=== PATIENT | male | born 1970 | race Caucasian/White ===

== ENCOUNTER → 2021-04-13 | Outpatient (CLI) | payer OTHER ==
[~2021-04-13] MED LIST: ERGO500029 PO; LISI10TA22 PO; NAPR-885 PO; ZOLO100T PO
== END ==
LOC: M LABSMTC 09:25
PROVIDERS: ATTEND Anesthesiology
DX: Z01.818 Encounter for other preprocedural examination (principal); Z11.52 Encounter for screening for COVID-19

== ENCOUNTER → 2021-06-08 | Outpatient (CLI) | payer OTHER ==
[~2021-06-08] MED LIST changes: +LISI40TA4 PO; +SERT-141 PO
== END ==
LOC: M LABSMTC 09:48
PROVIDERS: ATTEND Anesthesiology
DX: Z01.818 Encounter for other preprocedural examination (principal); Z11.52 Encounter for screening for COVID-19

== ENCOUNTER → 2022-01-19 | Outpatient (CLI) | payer OTHER | LOC: M LABSMTC 09:06 | PROVIDERS: ATTEND Anesthesiology | DX: Z01.818 Encounter for other preprocedural examination (principal); Z11.52 Encounter for screening for COVID-19 ==

== ENCOUNTER 2022-01-22 06:04 | Day surgery (SDC) | payer OTHER ==
[~2022-01-22] VITALS: Ht 157.5 cm; Wt 97.5 kg
[2022-01-22] MEDS ORDERED: LR 1,000 ML IV SCH ×3 (06:30→09:55)
[2022-01-22] MEDS ORDERED: LIDOCAINE W/EPINEPHRINE 1% 20ML VIAL As Ordered ONE ×2 (07:18→07:35)
[2022-01-22] MEDS ORDERED: propofoL 200 MG/20 ML VIAL As Ordered ONE (07:50)
[2022-01-22] MEDS ORDERED: ONDANSETRON 4MG 2ML VIAL As Ordered ONE (07:50)
[2022-01-22] MEDS ORDERED: ROCURONIUM BROMIDE 50 MG/5 ML VIAL As Ordered ONE (07:50)
[2022-01-22] MEDS ORDERED: MIDAZOLAM INJ 2MG/2ML VIAL (J2250 PER 1MG) As Ordered ONE (07:50)
[2022-01-22] MEDS ORDERED: fentaNYL 250 MCG/5 ML INJECTION As Ordered ONE (07:50)
[2022-01-22] MEDS ORDERED: dexameTHASONE 4 MG/ML 1ML VIAL (J1100 PER 1MG) As Ordered ONE (07:50)
[2022-01-22] MEDS ORDERED: KETOROLAC 60MG 2ML VIAL As Ordered ONE (07:50)
[2022-01-22] MEDS ORDERED: LIDOCAINE 2% 100MG/5ML SDV (FOR ANES.) As Ordered ONE (07:50)
[2022-01-22] MEDS ORDERED: SUGAMMADEX SODIUM 500 MG/5 ML VIAL (BRIDION) As Ordered ONE (07:50)
[2022-01-22] MEDS ORDERED: ePHEDrine SULFATE 25 MG/5 ML(5MG/ML) SYRINGE As Ordered ONE (07:51)
[2022-01-22] MEDS ORDERED: PHENYLephrine 500MCG 5ML (100MCG/ML) SYRINGE As Ordered ONE (07:51)
[2022-01-22] MEDS ORDERED: LIDOCAINE 5% OINT 30GM TUBE As Ordered ONE (08:02)
[2022-01-22] MEDS ORDERED: ONDANSETRON 4MG 2ML VIAL IV PRN (08:25)
[2022-01-22] MEDS ORDERED: MORPHINE 2 MG/ML 1ML VIAL IV PRN (08:25)
[2022-01-22] MEDS ORDERED: fentaNYL 100 MCG/2 ML INJECTION IV PRN (08:25)
[2022-01-22] MEDS ORDERED: PHENYLEPHRINE 0.5% NASAL SPRAY 15 ML As Ordered ONE (08:26)
[2022-01-22] MEDS ORDERED: ACETAMINOPHEN 500 MG TAB PO ONE (08:55)
[2022-01-22] MEDS: oxyCODONE 5MG TAB PO PRN ×2 (09:04→09:34)
[2022-01-22 09:48] VITALS: BP 140/85
== END 2022-01-22 10:35 | disposition home or self-care (01) ==
LOC: M SDC 06:04
PROVIDERS: ATTEND Dentist Oral and Maxillofacial Surgery
DX: K02.9 Dental caries, unspecified (principal); I10 Essential (primary) hypertension; M19.90 Unspecified osteoarthritis, unspecified site; G47.33 Obstructive sleep apnea (adult) (pediatric); R51.9 Headache, unspecified; F33.9 Major depressive disorder, recurrent, unspecified; F41.9 Anxiety disorder, unspecified; Z79.899 Other long term (current) drug therapy
CPT/HCPCS: 88300; D7140; D9223; J1100; J1885; J2250; J2270; J2370; J2405; J3010

== ENCOUNTER 2022-02-15 14:41 | Emergency (ER) | payer OTHER ==
[~2022-02-15] VITALS: Ht 157.5 cm; Wt 98.3 kg
[2022-02-15] MEDS ORDERED: ISOVUE-370 76% 100ML VIAL As Ordered ONE (22:52)
[2022-02-15] MEDS ORDERED: KETOROLAC 30 MG/ML 1ML VIAL IV ONE (22:55)
[2022-02-15 23:19] LABS: BILIRUBIN,DIRECT 0.2 MG/DL (<0.4)
[2022-02-15 23:20] LABS: ALBUMIN 3.8 G/DL (3.2-5.2); BILIRUBIN,TOTAL 0.7 MG/DL (0.3-1.2); TOTAL PROTEIN 7.2 G/DL (5.7-8.2)
[2022-02-15 23:37] LABS: BASO # 0.1 10^3/uL (0.0-0.2); BASO % 0.6 % (0.0-1.0); EOS # 0.3 10^3/uL (0.0-0.5); EOS % 2.9 % (0.0-3.0); HEMATOCRIT 42.1 % (42.0-52.0); HEMOGLOBIN 13.2 g/dl (13.5-17.5); LYMPH # 2.2 10^3/uL (1.5-5.0); LYMPH % 19.1 % (24.0-44.0); MEAN CORPUSCULAR HEMOGLOBIN 26.7 pg (27.0-33.0); MEAN CORPUSCULAR HGB CONC 31.4 g/dl (32.0-36.5); MEAN CORPUSCULAR VOLUME 85.2 fl (80.0-96.0); MONO # 0.7 10^3/uL (0.0-0.8); MONO % 5.9 % (2.0-8.0); NEUTROPHILS # 8.3 10^3/uL (1.5-8.5); PLATELET COUNT, AUTOMATED 365 10^3/uL (150-450); RED BLOOD COUNT 4.94 10^6/uL (4.30-6.10); WHITE BLOOD COUNT 11.7 10^3/uL (4.0-10.0)
[2022-02-16] MEDS ORDERED: ACET-716 PO (00:12)
[2022-02-16 00:19] VITALS: BP 163/45
== END 2022-02-16 00:52 | disposition home or self-care (01) ==
LOC: M ED 14:41
DX: K52.9 Noninfective gastroenteritis and colitis, unspecified (principal); K40.90 Unilateral inguinal hernia, without obstruction or gangrene, not specified as recurrent; K76.89 Other specified diseases of liver; I10 Essential (primary) hypertension; G47.33 Obstructive sleep apnea (adult) (pediatric); Z79.899 Other long term (current) drug therapy; Z87.891 Personal history of nicotine dependence
CPT/HCPCS: 74177; 80047; 80076; 81002; 83690; 85025; 96374; 99284; J1885